=== PATIENT | female | born 1990 | race African-American/Black ===

== ENCOUNTER 2017-01-18 23:28 | Emergency (ER) | payer BC ==
[~2017-01-18] VITALS: Ht 165.1 cm; Wt 107.6 kg
[~2017-01-18 23:28] MED LIST: FIORICET WI1 CAPSULE PO; MOTRIN800 MG PO; NAPROSYN500 MG PO; NOHOMEMEDS; NORCO 5/3251 TABLET PO; SAPHRIS5 MG SL; TOPAMAX25 MG PO; TRAMADOL HCL50 MG PO; XANAX0.25 MG PO; XANAX0.5 MG PO; XANAX1 MG PO; ZOFRAN4 MG PO
[2017-01-18 23:57] LABS: HEMATOCRIT 39.7 % (36.0-46.0); MCHC 32.5 G/DL (30.0-36.0); MCV 86.1 FL (83-99); MEAN PLAT.VOLUME 10.3 uM^3 (9.5-12.4); PLATELET COUNT 304 K/uL (156-360); RBC DIS.WIDTH-CV 13.3 % (11.8-14.6); RBC DIS.WIDTH-SD 41.9 % (39-53); RED BLOOD COUNT 4.61 M/uL (3.80-5.20); WHITE BLOOD COUNT 7.4 K/uL (4.1-10.2)
[2017-01-19 00:07] LABS: CHLORIDE 106 mEq/L (99-109); POTASSIUM 4.6 mEq/L (3.7-5.4); SODIUM 140 mEq/L (136-147)
[2017-01-19 00:09] LABS: GLUCOSE 98 mg/dL (70-99)
[2017-01-19 00:10] LABS: ANION GAP 8 MEQ/L (2-14)
[2017-01-19 00:11] LABS: TOTAL BILIRUBIN 0.5 mg/dL (0.0-1.0)
[2017-01-19 00:12] LABS: ALKALINE PHOSPHATASE 71 IU/L (3-129); GFR ESTIMATE (CALCULATED) > 59 mL/min/
[2017-01-19 00:14] LABS: UREA NITROGEN (BUN) 14 mg/dL (9-23)
[2017-01-19 00:21] LABS: QUANTITATIVE HCG < 4.0 MIU/ML
[2017-01-19 00:38] LABS: LIPASE 19 U/L (1.0-51.0)
[2017-01-19] MEDS ORDERED: NAPROSYN500 MG PO (02:02)
[2017-01-19] MEDS ORDERED: ZOFRAN4 MG PO (02:02)
[2017-01-19 02:59] LABS: ADD MIUA? YES; BILIRUBIN NEGATIVE; BLOOD NEGATIVE; COLOR YELLOW ((YELLOW)); GLUCOSE (STRIP) NEGATIVE; KETONES NEGATIVE; LEUKOCYTES NEGATIVE; NITRITE NEGATIVE; PROTEIN (STRIP) NEGATIVE; SPECIFIC GRAVITY 1.021 (1.000-1.030); UROBILINOGEN 0.2 MG/DL (0.2-1.0)
[2017-01-19 03:11] LABS: BACTERIA NONE SEEN /HPF; EPITHELIAL CELLS 2+ /HPF; MUCUS TRACE /LPF; RED BLOOD CELLS 0-5 /HPF (0-5); UCUL ADDED? NO; WHITE BLOOD CELLS 0-5 /HPF (0-5)
[2017-01-19 03:30] VITALS: BP 119/73
== END 2017-01-19 03:32 | disposition home or self-care (01) ==
LOC: EME 23:28
DX: R10.11 Right upper quadrant pain (principal); F17.200 Nicotine dependence, unspecified, uncomplicated; E66.9 Obesity, unspecified; Z88.2 Allergy status to sulfonamides
CPT/HCPCS: 76705; 80053; 81003; 83690; 84702; 85027; 99281; 99284

== ENCOUNTER 2017-05-02 23:45 | Emergency (ER) | payer BC ==
[~2017-05-02] VITALS: Ht 165.1 cm; Wt 108.1 kg
[2017-05-03 00:24] LABS: MCH 28.4 PG (29.0-34.0); MCHC 32.3 G/DL (30.0-36.0); MCV 87.8 FL (83-99); MEAN PLAT.VOLUME 10.7 uM^3 (9.5-12.4); PLATELET COUNT 310 K/uL (156-360); RBC DIS.WIDTH-CV 13.6 % (11.8-14.6); RBC DIS.WIDTH-SD 43.9 % (39-53); RED BLOOD COUNT 4.44 M/uL (3.80-5.20)
[2017-05-03 00:29] LABS: ADD MIUA? YES; BILIRUBIN NEGATIVE; BLOOD NEGATIVE; COLOR YELLOW ((YELLOW)); GLUCOSE (STRIP) NEGATIVE; KETONES NEGATIVE; LEUKOCYTES NEGATIVE; NITRITE NEGATIVE; PROTEIN (STRIP) 30; SPECIFIC GRAVITY 1.028 (1.000-1.030)
[2017-05-03 00:34] LABS: BACTERIA NONE SEEN /HPF; EPITHELIAL CELLS 3+ /HPF; MUCUS TRACE /LPF; RED BLOOD CELLS 0-5 /HPF (0-5); UCUL ADDED? NO; WHITE BLOOD CELLS 0-5 /HPF (0-5)
[2017-05-03 00:35] LABS: CHLORIDE 106 mEq/L (99-109); POTASSIUM 3.6 mEq/L (3.7-5.4); SODIUM 141 mEq/L (136-147)
[2017-05-03 00:37] LABS: GLUCOSE 100 mg/dL (70-99)
[2017-05-03 00:38] LABS: ANION GAP 10 MEQ/L (2-14)
[2017-05-03 00:39] LABS: TOTAL BILIRUBIN 0.5 mg/dL (0.0-1.0)
[2017-05-03 00:41] LABS: ALKALINE PHOSPHATASE 72 IU/L (3-129); GFR ESTIMATE (CALCULATED) > 59 mL/min/
[2017-05-03 00:42] LABS: UREA NITROGEN (BUN) 13 mg/dL (9-23)
[2017-05-03 00:50] LABS: QUANTITATIVE HCG < 4.0 MIU/ML
[2017-05-03 01:10] LABS: LIPASE 18 U/L (1.0-51.0)
[2017-05-03] MEDS ORDERED: PEPCID20 MG PO (02:31)
[2017-05-03] MEDS ORDERED: ZOFRAN4 MG PO (02:31)
[2017-05-03 02:50] VITALS: BP 161/93
== END 2017-05-03 02:53 | disposition home or self-care (01) ==
LOC: EXP 23:45 → EME 23:45 → EXP 05-03 02:53
DX: R10.9 Unspecified abdominal pain (principal); R11.2 Nausea with vomiting, unspecified; F31.9 Bipolar disorder, unspecified; F32.9 Major depressive disorder, single episode, unspecified; F41.9 Anxiety disorder, unspecified; Z88.2 Allergy status to sulfonamides; F17.200 Nicotine dependence, unspecified, uncomplicated
CPT/HCPCS: 80053; 81003; 83690; 84702; 85027; 99281; 99284

== ENCOUNTER 2017-07-25 09:06 | Emergency (ER) | payer BC ==
[~2017-07-25] VITALS: Ht 165.1 cm; Wt 107.4 kg
[~2017-07-25 09:06] MED LIST changes: +PEPCID20 MG PO
[2017-07-25] MEDS ORDERED: FLEXERIL10 MG PO (12:11)
[2017-07-25] MEDS ORDERED: LIDODERM 5% P1 PATCH TD (12:11)
[2017-07-25] MEDS ORDERED: MOTRIN800 MG PO (12:11)
[2017-07-25 12:23] VITALS: BP 126/77
== END 2017-07-25 12:25 | disposition home or self-care (01) ==
LOC: EME 09:06
DX: S39.012A Strain of muscle, fascia and tendon of lower back, initial encounter (principal); M54.42 Lumbago with sciatica, left side; M54.41 Lumbago with sciatica, right side; W00.0XXA Fall on same level due to ice and snow, initial encounter; F32.9 Major depressive disorder, single episode, unspecified; F41.9 Anxiety disorder, unspecified; I34.1 Nonrheumatic mitral (valve) prolapse; F17.200 Nicotine dependence, unspecified, uncomplicated; Z88.2 Allergy status to sulfonamides
CPT/HCPCS: 72100; 99281; 99285

== ENCOUNTER 2017-11-22 12:46 | Emergency (ER) | payer BC ==
[~2017-11-22] VITALS: Ht 165.1 cm; Wt 114.9 kg
[~2017-11-22 12:46] MED LIST changes: +FLEXERIL10 MG PO; +LIDODERM 5% P1 PATCH TD
[2017-11-22] MEDS ORDERED: DOXYCYCLINE MO100 MG PO (13:58)
[2017-11-22 14:09] VITALS: BP 129/76
== END 2017-11-22 14:10 | disposition home or self-care (01) ==
LOC: EME 12:46
PROC: 0H9UXZZ (ICD-10-PCS; principal; 2017-11-22)
DX: N61.1 Abscess of the breast and nipple (principal); F32.9 Major depressive disorder, single episode, unspecified; F41.9 Anxiety disorder, unspecified; Z88.2 Allergy status to sulfonamides; Z87.891 Personal history of nicotine dependence
CPT/HCPCS: 99281; 99284